=== PATIENT | male | born 1990 ===

== ENCOUNTER 2020-08-29 07:19 | Outpatient (CLI) | payer OTHER | END 2020-08-29 07:41 | disposition home or self-care (01) | LOC: LAB 07:19 | PROVIDERS: ATTEND Internal Medicine Endocrinology, Diabetes & Metabolism | DX: Z20.828 Contact with and (suspected) exposure to other viral communicable diseases (principal); Z20.822 Contact with and (suspected) exposure to COVID-19 ==